=== PATIENT | female | born 1950 | race Caucasian/White ===

== ENCOUNTER 2018-12-29 09:40 | Day surgery (SDC) | payer OTHER ==
[~2018-12-29] VITALS: Ht 165.1 cm; Wt 80.9 kg
[~2018-12-29 09:40] MED LIST: ADVIL LIQUI-GE200 MG PO; ATOR10 PO; BIOTIN5000 MC1 SL; GLUCOSAMINE CO1 EACH PO; LISHYD1012 PO; VITAMIN D31000 UNI2 PO
== END 2018-12-29 12:23 | disposition home or self-care (01) ==
LOC: ORSCSDS 09:40
PROVIDERS: Internal Medicine Gastroenterology
PROC: 0DBN8ZX Excision of Sigmoid Colon, Via Natural or Artificial Opening Endoscopic, Diagnostic (ICD-10-PCS; principal; 2018-12-29 11:00)
PROC: 0DBM8ZX Excision of Descending Colon, Via Natural or Artificial Opening Endoscopic, Diagnostic (ICD-10-PCS; principal; 2018-12-29 11:00)
DX: Z12.11 Encounter for screening for malignant neoplasm of colon (principal); K63.5 Polyp of colon; D12.5 Benign neoplasm of sigmoid colon; K57.30 Diverticulosis of large intestine without perforation or abscess without bleeding; K64.8 Other hemorrhoids; Z86.010 Personal history of colon polyps; I10 Essential (primary) hypertension; E78.5 Hyperlipidemia, unspecified; Z79.899 Other long term (current) drug therapy
CPT/HCPCS: 88305; J2704; J7120

== ENCOUNTER 2020-04-18 12:40 | Inpatient (IN) | payer OTHER ==
[~2020-04-18] VITALS: Ht 162.6 cm; Wt 93.6 kg
[~2020-04-18 12:40] MED LIST changes: +BIOTIN1 MG PO; -BIOTIN5000 MC1 SL; +CALCIUM MAG ZINC PO; +CIDAFLEX TABLE1 EAC1 PO; +IBUP200 PO; -LISHYD1012 PO; +MELA3 PO; +MULVITA PO; +SUPER B COMPLEX PO; +VITAMIN D310 MC4 PO; -VITAMIN D31000 UNI2 PO; +Vitamin C100 M1 PO; +ZESTORETIC 20-1 EACH PO
--- NOTE | 2020-04-23 11:30 | NUR ---
PT ARRIVED TO UNIT ON OWN BED, DROWSY BUT ORIENTED, FOLLOWS DIRECTIONS, DENIES N/V, DENIES PAIN AT THIS TIME. POST OP VS COMMENCED AND STABLE. OPERATIVE SHOULDER DRESSING C/D/I, CAP REFILL <3 SECONDS, IS ABLE TO GENTLY SQUEEZE THIS RN'S FINGERS AND FULL SENSATION, DENIES N/T
--- NOTE | 2020-04-23 11:52 | NUR ---
PT ORIENTED TO ROOM/CALL LIGHT, PROVIDED WITH PO FLUIDS AND A SNACK, IS RESTING COMFORTABLY
--- NOTE | 2020-04-23 19:00 | NUR ---
provided pt with DC instructions which pt states understanding of. removed peripheral IV WNL. Changed dressing to aquacel dressing, provided with one dressing for change. pt's transferred pt's belongings to awaiting vehicle. pt transferred to awaiting vehicle via wheelchair. Dr Ron provided pt's with DC meds prior to admit; pt states she has filled those medications, has them at home. pt denies pain at this time, refuses any analgesia per mar prior to DC
--- NOTE | 2020-04-24 09:58 | NUR ---
04/24/20 0958 Laurita Rausch VERIFICATIONS: EDIT CHART.
== END 2020-04-23 19:00 | disposition home or self-care (01) | DRG 483 ==
LOC: SURS 04-23 06:21 → PRE IP 04-23 07:30 → SURS 04-23 11:27
PROVIDERS: ADMIT Orthopaedic Surgery
PROC: 0RRJ00Z Replacement of Right Shoulder Joint with Reverse Ball and Socket Synthetic Substitute, Open Approach (ICD-10-PCS; principal; 2020-04-23 07:30)
DX: M19.011 Primary osteoarthritis, right shoulder (principal); I10 Essential (primary) hypertension; E78.5 Hyperlipidemia, unspecified; K21.9 Gastro-esophageal reflux disease without esophagitis; E66.01 Morbid (severe) obesity due to excess calories; Z68.35 Body mass index [BMI] 35.0-35.9, adult
CPT/HCPCS: 73030; 88300; 97110; 97166; 97530; 97535; A9270; C1713; C1776; J0171; J0690; J0696; J0735; J1100; J1885; J2250; J2405; J2704; J2795; J3010; J3370; J7120

== ENCOUNTER 2021-06-03 11:02 | Day surgery (SDC) | payer OTHER ==
[~2021-06-03] VITALS: Ht 162.6 cm; Wt 97.8 kg
[~2021-06-03 11:02] MED LIST changes: +GLUCOSAMINE/MSM PO
[2021-06-03] MEDS ORDERED: ACET500 PO (11:30)
--- NOTE | 2021-06-03 12:00 | NUR ---
PT HERE WITH CINDY. Ambulatory in Day Surgery. History, Chart, Medications and Allergies reviewed before start of procedure. Lungs clear T/O to Auscultation. Patient confirms NPO status and agrees with scheduled surgery. Pre-Op teaching done. Pt verbalizes understanding.
--- NOTE | 2021-06-03 12:47 | NUR ---
CALLED PHARMACY TO SEE ON STATUS OF VANCO/PRE OP ABX, STILL NOT IN UNIT.
--- NOTE | 2021-06-03 17:18 | NUR ---
POST OP: REPORT RECEIVED FROM MORIS MILLING MACHINE OPERATOR. PT TO UNIT AT ABOUT 1700. PT IS A/O, VSS, SURGICAL SITE WNL. PT DENIES PAIN. WILL CTM
[2021-06-04 04:30] LABS: BASOPHILS ABSOLUTE AUTO 0.05 K/mm3 (0.00-0.23); BASOPHILS PERCENT AUTO 1 % (0-2); EOSINOPHILS ABSOLUTE AUTO 0.21 K/mm3 (0.00-0.68); EOSINOPHILS PERCENT AUTO 2 % (0-6); Hematocrit 38.5 % (33.0-51.0); Hemoglobin 12.9 g/dL (11.5-16.0); IMMATURE GRAN ABSOLUTE AUTO 0.03 K/mm3 (0.00-0.10); IMMATURE GRAN PERCENT AUTO 0 % (0-1); LYMPHOCYTES ABSOLUTE AUTO 1.65 K/mm3 (0.84-5.20); LYMPHOCYTES PERCENT AUTO 17 % (21-46); MONOCYTES ABSOLUTE AUTO 1.37 K/mm3 (0.16-1.47); MONOCYTES PERCENT AUTO 14 % (4-13); Mean Corpuscular HGB 32.7 pg (26.0-34.0); Mean Corpuscular HGB Conc 33.5 g/dL (31.5-36.5); Mean Corpuscular Volume 98 fL (80-100); NEUTROPHILS ABSOLUTE AUTO 6.42 K/mm3 (1.96-9.15); NEUTROPHILS PERCENT AUTO 66 % (41-73); Platelet Count 202 K/mm3 (150-400); RDW Coefficient Variation 13.5 % (11.7-14.2); RDW Standard Deviation 48.5 fL (35.1-46.3); Red Blood Cell Count 3.94 M/mm3 (3.80-5.20); White Blood Cell Count 9.73 K/mm3 (4.00-11.30)
[2021-06-04 04:47] LABS: Anion Gap 6 mmol/L (6-16); Blood Urea Nitrogen 17 mg/dL (8-24); Bun/Creatinine Ratio 25.8 (12.0-20.0); CO2, Blood 27 mmol/L (21-32); Calcium, Blood 8.5 mg/dL (8.5-10.1); Chloride, Blood 106 mmol/L (98-108); Creatinine, Blood 0.66 mg/dL (0.40-1.00); Glomerular Filtration Rate >60 (60-); Glucose, Blood 108 mg/dL (70-99); Potassium, Blood 3.7 mmol/L (3.5-5.5); Sodium, Blood 139 mmol/L (136-145)
--- NOTE | 2021-06-04 05:45 | NUR ---
MICROBIOLOGY LAB TECHNICIAN SUMMARY PT AAOX4 AND PLEASANT. AMBULATING WELL WITH STANDBY ASSIST AND FWW. PAIN WELL MANAGED WITH SCHEDULED TORADOL AND PRN PAIN MEDS Q4H. IV ABX CONTINUING PER EMAR WITH NO ISSUES. VSS, WILL CONTINUE TO MONITOR.
[2021-06-04] MEDS ORDERED: Aspir 8181 MG PO (09:59)
[2021-06-04] MEDS ORDERED: CLIN150 PO (09:59)
[2021-06-04] MEDS ORDERED: OXAYDO5 M1 PO (10:00)
[2021-06-04] MEDS ORDERED: PROM25 PO (10:00)
--- NOTE | 2021-06-04 16:01 | NUR ---
1415 DISCHarged to home with . pt with sudden emesis when being transpored via wheelchair to discharge. pt reports she feels emesis was due to knee pain. sips of water given per patient request and patient reports nausea is decreasing and feels that she is ok to discharge.
== END 2021-06-04 15:10 | disposition home or self-care (01) ==
LOC: ORSCMMR 11:02 → ORD 12:45 → ORSCMMR 12:45 → SURS 16:58 → ORSCMMR 06-04 15:10 → SURS 06-04 15:10
PROVIDERS: Orthopaedic Surgery
DX: M17.12 Unilateral primary osteoarthritis, left knee (principal); I10 Essential (primary) hypertension; E78.5 Hyperlipidemia, unspecified; Z79.899 Other long term (current) drug therapy; E66.01 Morbid (severe) obesity due to excess calories; Z68.37 Body mass index [BMI] 37.0-37.9, adult
CPT/HCPCS: 36415; 73560-LT; 80048; 83735; 85025; 97110; 97161; A9270; C1713; C1776; J0171; J0690; J0735; J1885; J2370; J2704; J2795; J3010; J3370; J7050; J7120

== ENCOUNTER 2023-04-26 08:19 | Day surgery (SDC) | payer OTHER ==
[~2023-04-26] VITALS: Ht 162.6 cm; Wt 94.2 kg
[~2023-04-26 08:19] MED LIST changes: +ACET500 PO; +Aspir 8181 MG PO; +CLIN150 PO; +OXAYDO5 M1 PO; +PROM25 PO
[2023-04-26 10:37] VITALS: BP 113/73
--- NOTE | 2023-04-26 10:38 | NUR ---
04/26/23 1038 Aydee Orosco IV AT 1025/CATHETER WNL
== END 2023-04-26 10:35 | disposition home or self-care (01) ==
LOC: ORSCSDS 08:19
PROVIDERS: Internal Medicine Gastroenterology
PROC: 0DBK8ZX Excision of Ascending Colon, Via Natural or Artificial Opening Endoscopic, Diagnostic (ICD-10-PCS; principal; 2023-04-26 09:30)
DX: Z12.11 Encounter for screening for malignant neoplasm of colon (principal); Z86.010 Personal history of colon polyps; D12.2 Benign neoplasm of ascending colon; K57.30 Diverticulosis of large intestine without perforation or abscess without bleeding; I10 Essential (primary) hypertension; E78.5 Hyperlipidemia, unspecified; Z79.899 Other long term (current) drug therapy
CPT/HCPCS: 88305; A9270; J2704; J7120

== ENCOUNTER 2023-10-23 12:09 | Inpatient (IN) | payer OTHER ==
[~2023-10-23] VITALS: Ht 162.6 cm; Wt 97.3 kg
[2023-10-23] VITALS (11 sets, daily range): BP systolic 132–159; BP diastolic 67–86
[~2023-10-23 12:09] MED LIST changes: -ATOR10 PO; +ATOR20 PO; -GLUCHON PO; +Lisinopril-Hct1 EAC4 PO; -MERIBIN5 MG PO; -VITAMIN D325 MC3 PO; -ZESTORETIC 20-1 EACH PO
[2023-10-23] MEDS ORDERED: IBUP200 PO (15:01)
[2023-10-23] MEDS ORDERED: MERIBIN5 MG PO (15:01)
[2023-10-23] MEDS ORDERED: VITAMIN D31000 UNI1 PO (15:02)
[2023-10-23] MEDS ORDERED: GLUCHON PO (15:02)
[2023-10-23] MEDS ORDERED: Pantoprazole Sodium 40 MG Injection IV ONE (15:10)
[2023-10-23] MEDS ORDERED: Pantoprazole Sodium 40 MG in NS 50 ML IV SCH (15:15)
[2023-10-23 15:39] LABS: BASOPHILS ABSOLUTE AUTO 0.05 K/mm3 (0.00-0.23); BASOPHILS PERCENT AUTO 0 % (0-2); EOSINOPHILS PERCENT AUTO 1 % (0-6); Hematocrit 22.3 % (33.0-51.0); Hemoglobin 7.3 g/dL (11.5-16.0); IMMATURE GRAN ABSOLUTE AUTO 0.15 K/mm3 (0.00-0.10); IMMATURE GRAN PERCENT AUTO 1 % (0-1); LYMPHOCYTES ABSOLUTE AUTO 1.86 K/mm3 (0.84-5.20); LYMPHOCYTES PERCENT AUTO 16 % (21-46); MONOCYTES ABSOLUTE AUTO 1.21 K/mm3 (0.16-1.47); MONOCYTES PERCENT AUTO 11 % (4-13); Mean Corpuscular HGB 33.2 pg (26.0-34.0); Mean Corpuscular HGB Conc 32.7 g/dL (31.5-36.5); Mean Corpuscular Volume 101 fL (80-100); Mean Platelet Volume 9.8 fL (9.1-12.4); NEUTROPHILS ABSOLUTE AUTO 8.05 K/mm3 (1.96-9.15); NEUTROPHILS PERCENT AUTO 71 % (41-73); NRBC ABSOLUTE 0.13 K/mm3 (0.00-0.02); NRBC Auto 1.1 /100 WBC (0.0-0.2); Platelet Count 275 K/mm3 (150-400); RDW Coefficient Variation 15.9 % (11.7-14.2); RDW Standard Deviation 54.2 fL (35.1-46.3); White Blood Cell Count 11.42 K/mm3 (4.00-11.30)
[2023-10-23 15:58] LABS: Albumin, Blood 3.2 g/dL (3.4-5.0); Albumin/Globulin Ratio 1.1 (0.8-1.8); Bilirubin, Total 0.3 mg/dL (0.1-1.0); Calcium, Blood 9.1 mg/dL (8.5-10.1); Creatinine, Blood 0.57 mg/dL (0.40-1.00); Globulin, Blood 2.8 g/dL (2.2-4.0); Phosphorus, Blood 3.3 mg/dL (2.5-4.9); Potassium, Blood 4.2 mmol/L (3.5-5.5)
[2023-10-23] MEDS ORDERED: NS 1,000 ML IV SCH (16:55)
[2023-10-23] MEDS ORDERED: Ondansetron HCl 2 MG / ML 2ML Vial IV PRN ×2 (17:10→17:55)
[2023-10-23] MEDS ORDERED: Pantoprazole Sodium 40 MG Injection IV SCH ×2 (21:00)
[2023-10-23] MEDS ORDERED: NS 500 ML IV ONE (21:12)
[2023-10-23] MEDS ORDERED: NS 500 ML IV SCH (21:30)
--- NOTE | 2023-10-23 22:18 | NUR ---
ASSUMPTION OF CARE PATIENT ADMITTED TO PCU FOR UPPER GI BLEED. RBC UNIT 2 OF 2 INFUSING NOW. PATIENT TOLERATING WELL. BID PROTONIX GIVEN PER ORDERS. SEE MAR FOR DETAILS. PATIENT ALERT AND ORIENTED x4, DENIES PAIN WITH ABD PALPATION. ON ROOM AIR MAINTAINING SATS > 90%. SR ON TELE WITH HR 80'S. BP STABLE, HTN NOTED WITH SBP 130'S - 150'S. PATIENT HAS NOT HAD ANY STOOLS SINCE ADMISSION. GI CONSULT TOMORROW. NPO AT MIDNIGHT FOR POSSIBLE EGD.
[2023-10-24] VITALS (12 sets, daily range): BP systolic 103–171; BP diastolic 56–74
[2023-10-24 04:19] LABS: BASOPHILS ABSOLUTE AUTO 0.07 K/mm3 (0.00-0.23); BASOPHILS PERCENT AUTO 1 % (0-2); EOSINOPHILS ABSOLUTE AUTO 0.18 K/mm3 (0.00-0.68); EOSINOPHILS PERCENT AUTO 2 % (0-6); Hematocrit 27.4 % (33.0-51.0); Hemoglobin 9.1 g/dL (11.5-16.0); IMMATURE GRAN ABSOLUTE AUTO 0.13 K/mm3 (0.00-0.10); IMMATURE GRAN PERCENT AUTO 1 % (0-1); LYMPHOCYTES ABSOLUTE AUTO 2.23 K/mm3 (0.84-5.20); LYMPHOCYTES PERCENT AUTO 21 % (21-46); MONOCYTES ABSOLUTE AUTO 1.08 K/mm3 (0.16-1.47); MONOCYTES PERCENT AUTO 10 % (4-13); Mean Corpuscular HGB 32.5 pg (26.0-34.0); Mean Corpuscular HGB Conc 33.2 g/dL (31.5-36.5); Mean Corpuscular Volume 98 fL (80-100); NEUTROPHILS ABSOLUTE AUTO 6.95 K/mm3 (1.96-9.15); NEUTROPHILS PERCENT AUTO 65 % (41-73); NRBC ABSOLUTE 0.07 K/mm3 (0.00-0.02); NRBC Auto 0.7 /100 WBC (0.0-0.2); Platelet Count 237 K/mm3 (150-400); RDW Coefficient Variation 15.9 % (11.7-14.2); RDW Standard Deviation 52.7 fL (35.1-46.3); White Blood Cell Count 10.64 K/mm3 (4.00-11.30)
[2023-10-24 04:31] LABS: International Normalized Ratio 0.99; Prothrombin Time Results 10.6 Sec (9.7-11.5)
[2023-10-24 04:47] LABS: Magnesium, Blood 2.1 mg/dL (1.6-2.4)
[2023-10-24 04:48] LABS: Bun/Creatinine Ratio 33.1 (12.0-20.0); Calcium, Blood 8.5 mg/dL (8.5-10.1); Creatinine, Blood 0.57 mg/dL (0.40-1.00); Potassium, Blood 3.7 mmol/L (3.5-5.5)
--- NOTE | 2023-10-24 06:23 | NUR ---
SHIFT SUMMARY PATIENT RESTED WELL THROUGHOUT THE NIGHT. 2 UNIT PRBC'S GIVEN, HGB IMPROVED. GI CONSULT CALLED IN OVERNIGHT. PATIENT NPO AWAITING EGD. NO OTHER ACUTE CHANGES SINCE PERVIOUS NOTE.
[2023-10-24] MEDS ORDERED: HydroCHLOROthiazide 25 mg Tab PO SCH ×3 (09:00)
[2023-10-24] MEDS ORDERED: Lisinopril 10 MG Tab PO SCH ×3 (09:00)
[2023-10-24] MEDS ORDERED: Lactated Ringer's 1,000 ML IV SCH (15:20)
[2023-10-24] MEDS ORDERED: propofoL 100 ML IV ONE (15:24)
[2023-10-24] MEDS ORDERED: Lidocaine 2% 5 ML SDV ONE (15:24)
--- NOTE | 2023-10-24 15:25 | NUR ---
PT ARRIVED TO UNIT VIA W/C. SPOUSE AT BEDSIDE. History, Chart, Medications and Allergies reviewed before start of procedure. Pre-Op teaching done. Pt verbalizes understanding. BELONGINGS LEFT IN ROOM.
[2023-10-24] MEDS ORDERED: SuccINYLCHOLINE Chloride 100 MG/5 ML 5MLSYR ONE (16:14)
[2023-10-24] MEDS ORDERED: EpiNEPhrine 1 MG/1 ML 1ML Vial ONE (16:19)
[2023-10-24] MEDS ORDERED: Phenylephrine HCl 100 MCG/ML-NS 10MLSYR (1MG/10ML) ONE (16:25)
[2023-10-24] MEDS ORDERED: FentaNYL Citrate 50 MCG/ML 2 ML Injection ONE (16:32)
--- NOTE | 2023-10-24 17:28 | NUR ---
10/24/23 1728 Morgan Daigle LATE ENTRY FOR 1550. History, Chart, Medications and Allergies reviewed before start of procedure. MONITOR INTACT WITH CONTINUOUS PULSE OXIMETRY, CONTINUOUS END TITAL CO2, AND INTERMITTENT BLOOD PRESSURE. 3-LEAD EKG REVIEWED WITH PHYSICIAN PRIOR TO START OF PROCEDURE. O2 VIA POM INTACT THROUGHOUT SEDATION/PROCEDURE. Bite Block Placed. TELEMETRY REMOVED FROM PATIENT UPON ENTERING ENDO ROOM. PCU TELESALES AGENT NOTIFIED. SEE EMELINA'S NOTES FOR ANESTHESIA RECORDS. ONCE SCOPE PASSED INTO STOMACH IT WAS IMMEDIATELY REMOVED. PT WAS WOKEN UP BY ANESTHESIA AND CASE WAS MOVED TO OR 1. PT WAS AWAKE AND PLACED ON TRANSPORT MONITOR FROM ENDO ROOM 1 TO OR 1. PT INTUBATED AND SCOPE WAS REPASSED.
[2023-10-24] MEDS ORDERED: Pantoprazole Sodium 40 MG in NS 50 ML IV SCH (17:30)
--- NOTE | 2023-10-24 18:50 | NUR ---
SHIFT SUMMARY: PT HAS BEEN A&Ox4, ANSWERS QUESTIONS APPROPRIATELY, COOPERATIVE W/CARE. PT DENIES SOB, O2 SATS >95% ON RA. PT DENIES CP, SR ON MONITOR, VS STABLE. PT HAS DENIED ABD PAIN OR N/V/D THIS SHIFT. PT TO DAY SURGERY AND OR FOR EGD, SEE PROCEDURE NOTES FOR SUMMARY OF EVENTS. UPON RETURN TO ROOM, PT TO/FROM IMAGING FOR CT SCAN, RESULTS PENDING AT THIS TIME PT. PT's NPO STATUS MAINTAINED UNTIL CT RESULTS ARE RECEIVED AND PLAN OF CARE ESTABLISHED. AT THIS TIME, PT IS RESTING IN BED W/SPOUSE AT BEDSIDE AND CALL LIGHT IN REACH. WILL CONTINUE TO MONITOR AND TREAT ACCORDINGLY UNTIL CHANGE OF SHIFT.
[2023-10-24 19:30] LABS: Hematocrit 27.8 % (33.0-51.0); Hemoglobin 9.3 g/dL (11.5-16.0)
[2023-10-25] VITALS (11 sets, daily range): BP systolic 107–151; BP diastolic 55–71
[2023-10-25 04:04] LABS: BASOPHILS ABSOLUTE AUTO 0.04 K/mm3 (0.00-0.23); BASOPHILS PERCENT AUTO 0 % (0-2); EOSINOPHILS ABSOLUTE AUTO 0.13 K/mm3 (0.00-0.68); EOSINOPHILS PERCENT AUTO 1 % (0-6); Hematocrit 25.9 % (33.0-51.0); Hemoglobin 8.2 g/dL (11.5-16.0); IMMATURE GRAN ABSOLUTE AUTO 0.08 K/mm3 (0.00-0.10); IMMATURE GRAN PERCENT AUTO 1 % (0-1); LYMPHOCYTES ABSOLUTE AUTO 1.65 K/mm3 (0.84-5.20); LYMPHOCYTES PERCENT AUTO 18 % (21-46); MONOCYTES ABSOLUTE AUTO 0.85 K/mm3 (0.16-1.47); MONOCYTES PERCENT AUTO 9 % (4-13); Mean Corpuscular HGB 32.2 pg (26.0-34.0); Mean Corpuscular HGB Conc 31.7 g/dL (31.5-36.5); Mean Corpuscular Volume 102 fL (80-100); Mean Platelet Volume 9.8 fL (9.1-12.4); NEUTROPHILS ABSOLUTE AUTO 6.59 K/mm3 (1.96-9.15); NEUTROPHILS PERCENT AUTO 71 % (41-73); NRBC ABSOLUTE 0.04 K/mm3 (0.00-0.02); NRBC Auto 0.4 /100 WBC (0.0-0.2); Platelet Count 227 K/mm3 (150-400); RDW Coefficient Variation 16.4 % (11.7-14.2); RDW Standard Deviation 57.3 fL (35.1-46.3); Red Blood Cell Count 2.55 M/mm3 (3.80-5.20); White Blood Cell Count 9.34 K/mm3 (4.00-11.30)
--- NOTE | 2023-10-25 05:06 | NUR ---
SHIFT SUMMARY PATIENT ALERT AND ORIENTED x4. ABLE TO APPROPRIATELY EXPRESS NEEDS, CALL LIGHT WITHIN REACH. INDEPENDENT ADL'S. ROOM AIR, MAINTAINING SPO2 > 90%. BP STABLE. NPO AWAITING EGD AT NOON TODAY 10/24. NO N/V/D OVERNIGHT. HGB DECREASED FROM 9.3 TO 8.2. PATIENT DENIES DIZZINESS, LIGHTHEADEDNESS AT THIS TIME. NO ACUTE EVENTS OVERNIGHT.
[2023-10-25] MEDS ORDERED: Lactated Ringer's 1,000 ML IV SCH (12:30)
[2023-10-25] MEDS ORDERED: propofoL 20 ML IV ONE (12:39)
[2023-10-25] MEDS ORDERED: FentaNYL Citrate 50 MCG/ML 2 ML Injection ONE (12:40)
[2023-10-25] MEDS ORDERED: SuccINYLCHOLINE Chloride 100 MG/5 ML 5MLSYR ONE (12:42)
[2023-10-25] MEDS ORDERED: Ondansetron HCl 2 MG / ML 2ML Vial ONE (12:42)
[2023-10-25] MEDS ORDERED: Dexamethasone Sod Phos 10 MG/ML 1ML VIAL ONE (12:42)
[2023-10-25] MEDS ORDERED: EpiNEPhrine 1 MG/1 ML 1ML Vial ONE (13:06)
--- NOTE | 2023-10-25 18:32 | NUR ---
SHIFT SUMMARY: PT CONTINUES A&Ox4, ABLE TO MAKE NEEDS KNOWN, COOPERATIVE W/CARE. PT DENIES SOB, O2 SATS >93% ON RA. PT DENIES CP, SR ON MONITOR W/RATE 80s. PT DENIES N/V/D, TO/FROM DAY SURGERY FOR EGD, BIOPSY PENDING. PT TO/FROM [facility] FOR CT SCAN. PT HAS BEEN AMBULATING INDEPENDENTLY TO RESTROOM, NO BM THIS SHIFT. SPOUSE AT BEDSIDE. WILL CONTINUE TO MONITOR AND TREAT ACCORDINGLY UNTIL CHANGE OF SHIFT.
[2023-10-26 00:27] VITALS: BP 112/58
[2023-10-26 03:53] VITALS: BP 99/59
--- NOTE | 2023-10-26 06:14 | NUR ---
SHIFT SUMMARY ASSUMED CARE OF PATIENT AT 1900. NO SIGNIFICANT EVENTS OVERNIGHT. PATIENT ALERT AND ORIENTED x4. NO COMPLAINTS OF PAIN. SR ON TELE. ROOM AIR, TOLERATING WELL. REMAINS HEMODYNAMICALLY STABLE. AWAITING BIOPSY RESULTS. PROTONIX GTT INFUSING PER ORDERS.
[2023-10-26 07:33] VITALS: BP 133/73
[2023-10-26 08:42] LABS: BASOPHILS ABSOLUTE AUTO 0.02 K/mm3 (0.00-0.23); BASOPHILS PERCENT AUTO 0 % (0-2); EOSINOPHILS ABSOLUTE AUTO 0.01 K/mm3 (0.00-0.68); EOSINOPHILS PERCENT AUTO 0 % (0-6); Hematocrit 26.9 % (33.0-51.0); Hemoglobin 8.9 g/dL (11.5-16.0); IMMATURE GRAN ABSOLUTE AUTO 0.08 K/mm3 (0.00-0.10); IMMATURE GRAN PERCENT AUTO 1 % (0-1); LYMPHOCYTES ABSOLUTE AUTO 1.44 K/mm3 (0.84-5.20); LYMPHOCYTES PERCENT AUTO 13 % (21-46); MONOCYTES ABSOLUTE AUTO 0.91 K/mm3 (0.16-1.47); MONOCYTES PERCENT AUTO 8 % (4-13); Mean Corpuscular HGB 32.7 pg (26.0-34.0); Mean Corpuscular HGB Conc 33.1 g/dL (31.5-36.5); Mean Corpuscular Volume 99 fL (80-100); Mean Platelet Volume 9.7 fL (9.1-12.4); NEUTROPHILS ABSOLUTE AUTO 8.43 K/mm3 (1.96-9.15); NEUTROPHILS PERCENT AUTO 77 % (41-73); NRBC ABSOLUTE 0.02 K/mm3 (0.00-0.02); NRBC Auto 0.2 /100 WBC (0.0-0.2); Platelet Count 273 K/mm3 (150-400); RDW Coefficient Variation 15.8 % (11.7-14.2); RDW Standard Deviation 54.9 fL (35.1-46.3); Red Blood Cell Count 2.72 M/mm3 (3.80-5.20); White Blood Cell Count 10.89 K/mm3 (4.00-11.30)
[2023-10-26 09:04] LABS: Albumin, Blood 3.3 g/dL (3.4-5.0); Albumin/Globulin Ratio 1.1 (0.8-1.8); Bilirubin, Total 0.5 mg/dL (0.1-1.0); Creatinine, Blood 0.6 mg/dL (0.40-1.00); Globulin, Blood 3.1 g/dL (2.2-4.0); Potassium, Blood 3.6 mmol/L (3.5-5.5); Total Protein, Blood 6.4 g/dL (6.4-8.2)
[2023-10-26 11:20] VITALS: BP 131/65
[2023-10-26] MEDS ORDERED: PANT40 PO (11:45)
--- NOTE | 2023-10-26 12:29 | NUR ---
D/C SUMMARY PT REMAINS A&OX4, AND VS STABLE. SHE D/C'D AT 1227. I WENT OVER DISCHARGE EDUCATION WITH THE PT AND HER AND ANSWERED ANY QUESTIONS THEY HAD. MEDICATIONS FAXED TO [facility] PER PT REQUEST. HER IV WAS DISCHARGED WITHOUT ANY ISSUES, CATH INTACT. NO FURTHER NOTES AT THIS TIME.
[2023-10-26] MEDS ORDERED: Pantoprazole Sodium 20 MG Tab PO SCH (16:30)
--- NOTE | 2023-10-27 06:44 | NUR ---
10/27/23 0644 Magda Villeda SEE ANESTHESIA RECORD.
== END 2023-10-26 12:27 | disposition home or self-care (01) | DRG 378 ==
LOC: ER 12:09 → PCU 18:44
PROVIDERS: Emergency Medicine; Internal Medicine; ADMIT Family Medicine
PROC: 30233N1 Transfusion of Nonautologous Red Blood Cells into Peripheral Vein, Percutaneous Approach (ICD-10-PCS; principal; 2023-10-23)
PROC: 0DB68ZX Excision of Stomach, Via Natural or Artificial Opening Endoscopic, Diagnostic (ICD-10-PCS; 2023-10-24)
DX: K92.2 Gastrointestinal hemorrhage, unspecified (principal); D62 Acute posthemorrhagic anemia; K64.8 Other hemorrhoids; K31.9 Disease of stomach and duodenum, unspecified; K42.9 Umbilical hernia without obstruction or gangrene; I10 Essential (primary) hypertension; E27.8 Other specified disorders of adrenal gland; K76.9 Liver disease, unspecified; E78.5 Hyperlipidemia, unspecified; R00.0 Tachycardia, unspecified; E66.9 Obesity, unspecified; Z87.81 Personal history of (healed) traumatic fracture; Z87.440 Personal history of urinary (tract) infections; Z98.51 Tubal ligation status; Z98.890 Other specified postprocedural states; Z90.89 Acquired absence of other organs; Z88.2 Allergy status to sulfonamides; Z79.811 Long term (current) use of aromatase inhibitors; Z86.010 Personal history of colon polyps; Z87.19 Personal history of other diseases of the digestive system; Z79.899 Other long term (current) drug therapy; Z68.36 Body mass index [BMI] 36.0-36.9, adult
CPT/HCPCS: 36415; 36430; 71260; 72193; 74160; 80048; 80053; 82607; 82746; 82947; 83735; 84100; 85014; 85018; 85025; 85610; 85730; 86850; 86900; 86901; 86923; 88305; 88342; 96365; 96366; 96376; 99285-25; A9270; C9113; J0171; J0330; J1100; J2371; J2405; J2704; J3010; J7030; J7040; J7120; P9016; Q9967

== ENCOUNTER → 2023-10-23 | Outpatient (CLI) | payer OTHER ==
[~2023-10-23] MED LIST changes: +GLUCHON PO; +MERIBIN5 MG PO; +VITAMIN D325 MC3 PO
[2023-10-23 11:28] LABS: BASOPHILS ABSOLUTE AUTO 0.08 K/mm3 (0.00-0.23); BASOPHILS PERCENT AUTO 1 % (0-2); EOSINOPHILS ABSOLUTE AUTO 0.13 K/mm3 (0.00-0.68); EOSINOPHILS PERCENT AUTO 1 % (0-6); Hematocrit 23.6 % (33.0-51.0); Hemoglobin 7.8 g/dL (11.5-16.0); IMMATURE GRAN ABSOLUTE AUTO 0.15 K/mm3 (0.00-0.10); IMMATURE GRAN PERCENT AUTO 2 % (0-1); LYMPHOCYTES ABSOLUTE AUTO 1.95 K/mm3 (0.84-5.20); LYMPHOCYTES PERCENT AUTO 20 % (21-46); MONOCYTES ABSOLUTE AUTO 0.97 K/mm3 (0.16-1.47); MONOCYTES PERCENT AUTO 10 % (4-13); Mean Corpuscular HGB 33.5 pg (26.0-34.0); Mean Corpuscular HGB Conc 33.1 g/dL (31.5-36.5); Mean Corpuscular Volume 101 fL (80-100); NEUTROPHILS ABSOLUTE AUTO 6.69 K/mm3 (1.96-9.15); NEUTROPHILS PERCENT AUTO 67 % (41-73); Platelet Count 273 K/mm3 (150-400); RDW Coefficient Variation 15.5 % (11.7-14.2); RDW Standard Deviation 53.5 fL (35.1-46.3); Red Blood Cell Count 2.33 M/mm3 (3.80-5.20); White Blood Cell Count 9.97 K/mm3 (4.00-11.30)
[2023-10-23 11:37] LABS: Albumin, Blood 3.1 g/dL (3.4-5.0); Bilirubin, Total 0.3 mg/dL (0.1-1.0); Bun/Creatinine Ratio 34.3 (12.0-20.0); Calcium, Blood 9.5 mg/dL (8.5-10.1); Creatinine, Blood 0.67 mg/dL (0.40-1.00); Globulin, Blood 3.2 g/dL (2.2-4.0); Potassium, Blood 3.8 mmol/L (3.5-5.5); Total Protein, Blood 6.3 g/dL (6.4-8.2)
== END | disposition home or self-care (01) ==
LOC: LAB SHORT 11:22 → LAB 11:22
PROVIDERS: Physician Assistant
DX: R00.0 Tachycardia, unspecified (principal)
CPT/HCPCS: 80053; 85025